=== PATIENT | male | born 1975 | race Caucasian/White ===

== ENCOUNTER 2016-08-25 19:51 | Emergency (ER) | payer SELFPAY ==
[~2016-08-25] VITALS: Ht 175.3 cm; Wt 68.0 kg
[2016-08-25 20:35] VITALS: BP 122/70; PULSE 88; RESP 16; O2SAT 98
[2016-08-25] MEDS ORDERED: Tetracaine 0.5% 4 mL Ophthalmic Solution BOTH_EYES ONE (21:25)
[2016-08-25] MEDS ORDERED: Fluorescein 0.6 mg Ophthalmic Strip BOTH_EYES ONE (21:25)
--- NOTE | 2016-08-25 22:36 | ED.REPORT ---
HPI-Eye Problem Date of Service Aug 25, 2016 ED Provider: Best Valentin MD 41 year old male presents to the ER with 8/10 L eye pain after cutting firewood today a few hours ago. Pt states a piece of debris flew into the eye. He was wearing safety glasses. Does not believe that there was any metal in the wood. Pt denies vision loss but the eye is watering. Nursing Notes Stated Complaint: OBJECT IN LEFT EYE NO L&I Chief Complaint: Eye Nursing Notes Reviewed: Yes Allergies: Coded Allergies: No Known Allergies (Unverified , 08/25/16) General Time Seen by MD: 21:22 Chief Complaint Left eye affected, Pain Hx Obtained From: Patient Arrived By: Walk-in Sudden in Onset?: Yes Onset Occurred: 5 - 8 hours ago Symptom Duration: Since onset Progression Since Onset: Constant Location: : Eye left Quality: Painful Severity: Current: Pain level 8 out of 10 Associated with: Reports: Eye tearing, Denies: Fever Pertinent Negative: Relieved by nothing Risk-Eye Problem Eye Injury Risk Stratification RF Statements: Risk factors reviewed Past Medical History Past Medical History Reports: Asthma Past Surgical History leg Smoking History Former Smoker Social History Alcohol Use: "Social" Drug Use: Denies drug use Review of Systems Eyes: Reports: Blurred left, Eye pain left, Denies: Eye pain right, Visual loss bilateral Neurologic: Denies: Headache Complete sys rev & neg: except as marked. Physical Exam Initial Vital Signs Vital Signs (First) Date Time Temp Pulse Resp B/P Pulse Ox O2 Delivery O2 Flow Rate FiO2 08/25/16 20:35 36.4 88 16 122/70 98 Room Air Initial VS: Reviewed General / Const: Well-developed, Well-nourished ENT: Mucous membranes moist, Conjunctiva normal, No scleral icterus Neck: Full range of motion Respiratory: Breath sounds normal, Clear to auscultation, No respiratory distress Cardiovascular: Regular rate & rhythm, Heart sounds normal, Intact distal pulses Skin: Warm, Dry, No cyanosis Neurologic: Alert, Oriented, Nonfocal Psychiatric: Mood/affect normal, Behavior normal, Normal thought content Head / Eyes: Atraumatic, Normocephalic No visible foreign body, PERRLA bilat grossly intact visual acuity superficial corneal abrasion to the lateral aspect of L eye seidels negative globe intact Re-Eval/Medical Decision Med Decision/Clinical Course Patient is a 41-year-old male in generally good health who presents with left eye irritation and foreign body sensation. He was cutting firewood and he thinks that some sawdust may have gotten into his eye. His visual acuity is grossly intact and he has some conjunctival injection in his left eye and watery discharge. Fluorescein exam demonstrates negative Mayte sign. No evidence of traumatic injury to the globe or perforation. He is not cutting any metal objects lowering my suspicion for metallic foreign body of the globe. Examination reveals no foreign body present though he does have a small corneal abrasion. He does not use contact lenses. With application of tetracaine here in the emergency room he reported significant improvement in his pain. He has been prescribed a course of erythromycin ointment which was provided in the emergency room. He has been referred for follow-up with ophthalmology. I feel that he is appropriate for discharge home. Prior to discharge follow-up and return precautions were reviewed in detail with the patient who verbalized understanding and agreement with the plan. The patient was discharged in stable condition. Re-Evaluation/Progress : Time of Eval: 22:39 Re-Evaluation/Progress Note: Pain improved after tetracaine. Discussed plan for discharge and follow up. All questions addressed. Counseled Regarding: Diagnosis, Need for follow-up, When/why to return to ED Discharge & Departure Primary Impression: Corneal abrasion Encounter type: initial encounter Laterality: left Qualified Code: S05.02XA - Injury of conjunctiva and corneal abrasion without foreign body, left eye, initial encounter Additional Impressions: Left eye pain Sensation of foreign body in eye Disposition: Home Discharge Condition All VS Reviewed: Yes Condition: Stable Additional Instructions: Thank you for seeking care at [facility] emergency room. You were seen today for a corneal abrasion. Our primary goal today in the ED was to evaluate you for any life-threatening conditions. Your evaluation was reassuring. You will be discharged with erythromycin ointment, take this three times daily and 600mg ibuprofen 3 times daily . You should follow-up with the face and fill packer in 1-2 weeks. You should return to the ED immediately if you develop swelling, redness, vision loss, fevers, vomiting, cough, shortness of breath, chest pain, lightheadedness, weakness or any other concerning signs or symptoms. Thank you for letting us partake in your care today. Referrals: [facility] (PCP) Dontrell Duenas MD Scribe Attestation Portions of this note were transcribed by Dorinda Quick. I, (Dr. Best Valentin ) personally performed the history, physical exam and medical decision-making; I reviewed and confirmed the accuracy of the information in the transcribed note. Signed by: Dorinda Quick. Vivekibe, 08/25/2016, [id number] copies to: Dontrell Duenas MD,Best Mcgill MD Aug 25, 2016 22:36 Dorinda Quick Aug 25, 2016 22:43
[2016-08-25 23:11] VITALS: BP 121/66; PULSE 72; O2SAT 97
[2016-08-26] MEDS ORDERED: _Erythromycin 0.5% Oph Oint 3.5 gm LEFT_EYE SCH (08:30)
[2016-08-26] MEDS ORDERED: Erythromycin 0.5% 3.5 Gm Ophthalmic Ointment LEFT_EYE SCH (08:30)
== END 2016-08-25 23:14 | disposition home or self-care (01) ==
LOC: SED 19:51
DX: S05.02XA Injury of conjunctiva and corneal abrasion without foreign body, left eye, initial encounter (principal); W22.8XXA Striking against or struck by other objects, initial encounter; Y93.89 Activity, other specified; Y92.89 Other specified places as the place of occurrence of the external cause; Y99.8 Other external cause status; J45.909 Unspecified asthma, uncomplicated; Z87.891 Personal history of nicotine dependence